=== PATIENT | female | born 1960 | race Caucasian/White ===

== ENCOUNTER 2019-06-11 16:31 | Inpatient (IN) | payer OTHER ==
[~2019-06-11] VITALS: Ht 162.6 cm; Wt 73.9 kg
--- NOTE | 2019-06-11 16:00 | NUR ---
RN ADMITTING NOTES PT ARRIVED ONTO THE UNIT AT 1600 FROM [facility]. PT COMPLAINS OF WORSENING ABD PAIN X1 WEEK. PT HAS LEFT WRIST #20 INTACT AND PATENT. PT TELE MONITORED SINUS RHYTHM RATE IN THE 60-70S. ALL PATIENT BELONGINGS ACCOUNTED FOR AND DOCUMENTED. PER ADMITING HOSPITALIST CINDI CANTRELL, PATIENT WILL REMAIN NPO. SAFETY PRECAUTIONS IN PLACE, BED IN LOWEST LOCKED POSITION, X2 SIDE RAILS UP AND CALL LIGHT WITHIN REACH, WILL CONTINUE TO MONITOR.
[2019-06-11] MEDS ORDERED: HYDR25TA4 PO (16:58)
[2019-06-11] MEDS ORDERED: HYDR-500 PO (16:58)
[2019-06-11] MEDS ORDERED: PANT40TA4 PO (16:58)
[2019-06-11] MEDS ORDERED: SERT100T PO (16:58)
[2019-06-11] MEDS ORDERED: METH500T6 PO (16:58)
--- NOTE | 2019-06-11 18:50 | NUR ---
CANS VACUUM TESTER NOTES NOTES PT RESTING IN BED. AT BEDSIDE. PT CURRENTLY MEETING WITH HOSPITALIST BECKY CANTRELL. AWAITING ADMITTING ORDERS. WILL ENDORSE TO GLUING MACHINE FEEDER NURSE FOR CONTINUITY OF CARE.
[2019-06-11] MEDS ORDERED: IV NS 0.9% 1,000 ML IV PRN (19:23)
[2019-06-11] MEDS ORDERED: METHOCARBAMOL (500MG) 500 MG TABLET PO PRN (19:30)
[2019-06-11] MEDS ORDERED: IV NS 0.9% 1,000 ML BAG IV PRN (19:30)
[2019-06-11] MEDS ORDERED: ONDANSETRON HCL/PF 4 MG/2 ML VIAL IVP PRN (19:30)
[2019-06-11] MEDS ORDERED: MAG HYDROX/AL HYDROX/SIMETH 30 ML UDC PO PRN (19:30)
[2019-06-11] MEDS ORDERED: HYDROCODONE/APAP 5/325MG 1 EACH TABLET PO PRN (19:30)
[2019-06-11] MEDS ORDERED: MORPHINE SULFATE INJ 2 MG/ML DISP.SYRIN IV PRN (19:30)
[2019-06-11] MEDS ORDERED: Z GUARD REMEDY 2 OZ OINT TP PRN (19:30)
[2019-06-11] MEDS ORDERED: CEFTRIAXONE 1 G in IV D5W 50 ML IV SCH (19:30)
[2019-06-11] MEDS ORDERED: MAGNESIUM HYDROXIDE 30 ML UDC PO PRN (19:30)
[2019-06-11] MEDS ORDERED: PANTOPRAZOLE 40 MG VIAL IV SCH (19:30)
[2019-06-11] MEDS ORDERED: ACETAMINOPHEN 325 MG TABLET PO PRN (19:30)
--- NOTE | 2019-06-11 19:52 | NUR ---
LINUX SYSTEMS ADMINISTRATOR OPENING NOTES RECEIVED PATIENT IN BED AWAKE, ALERT AND ORIENTED X4, VERBALLY RESPONSIVE, ABLE TO MAKE NEEDS KNOWN. AT BEDSIDE. BREATHING EVEN AND UNLABORED. NO SOB NOTED. TOLERATING ROOM AIR. CURRENTLY WITH NO COMPLAINTS OF PAIN OR DISCOMFORT. NO FACIAL GRIMACING. IV ON LEFT WRIST INTACT AND PATENT. SKIN DRY AND WARM TO TOUCH. AFEBRILE. REMAINS NPO. ALL OTHER NEEDS ATTENDED TO. SAFETY MEASURES IN PLACE. CALL LIGHT WITHIN REACH. WILL CONTINUE TO MONITOR.
[2019-06-11 20:00] VITALS: BP 108/54
[2019-06-11 20:50] LABS: ALBUMIN 3.5 g/dL (3.4-5.0); BILIRUBIN,TOTAL 1.2 mg/dL (0.2-1.0); CALCIUM, SERUM 8.3 mg/dL (8.5-10.1); CREATININE 0.7 mg/dL (0.6-1.3); TOTAL PROTEIN, SERUM 6.6 g/dL (6.4-8.2)
[2019-06-11] MEDS: CEFTRIAXONE 1 G in IV D5W 50 ML IV SCH (20:50)
[2019-06-11 20:57] LABS: POTASSIUM 2.6 mmol/L (3.5-5.1)
[2019-06-11 21:02] LABS: THYROID STIMULATING HORMONE 0.094 uIU/mL (0.358-3.74)
--- NOTE | 2019-06-11 21:16 | NUR ---
RN MS NOTES PATIENT WHEELED DOWN FOR HIDA SCAN.
[2019-06-11 21:20] LABS: BASOPHILS % (AUTO) 0.2 % (0.0-2.0); HEMATOCRIT 38 % (33-45); HEMOGLOBIN 12.7 g/dL (11.5-14.8); LYMPHOCYTES # (AUTO) 1.9 /CMM (0.8-4.8); LYMPHOCYTES % (AUTO) 21.8 % (20.0-44.0); MEAN CORPUSCULAR HGB CONC 34 g/dl (31.0-36.0); MEAN CORPUSCULAR VOLUME 88 fL (82-100); MONOCYTES # (AUTO) 1.2 /CMM (0.1-1.30); MONOCYTES % (AUTO) 14.2 % (2.0-12.0); NEUTROPHILS # (AUTO) 5.1 /CMM (1.8-8.9); NEUTROPHILS % (AUTO) 59.8 % (43.0-81.0); PLATELET COUNT (AUTO) 321 /CMM (150-450); RED BLOOD CELL COUNT(AUTO) 4.29 MIL/uL (4.0-5.2); WHITE BLOOD COUNT (AUTO) 8.5 K/uL (4.3-11.0)
--- NOTE | 2019-06-11 21:37 | NUR ---
RN MS NOTES RECEIVED RESULT FOR POTASSIUM 2.6. PATIENT'S POTASSIUM AT [facility] WAS SAME AND WAS GIVEN 20MEQ IV OF POTASSIUM. POTASSIUM LEVEL INCREASED TO 3.1 PRIOR TO BEING ADMITTED TO [facility]. DR. TRAY LACEY MADE AWARE, WITH ORDERS TO TRANSFUSE ANOTHER 40MEQ IV OF POTASSIUM. ORDER NOTED AND CARRIED OUT. WILL CONTINUE TO MONITOR.
--- NOTE | 2019-06-11 22:42 | NUR ---
RN MS NOTES PATIENT BACK FROM HIDA SCAN. NO DISTRESS NOTED. IN STABLE CONDITION.
--- NOTE | 2019-06-11 22:52 | NUR ---
NM:HIDA SCAN WAS COMPLETED. TECH:RB.
[2019-06-11] MEDS: POTASSIUM CL. PREMIX PERIPHER. 50 ML IV SCH (22:55)
[2019-06-12] VITALS: BP 120/77
[2019-06-12] MEDS: POTASSIUM CL. PREMIX PERIPHER. 50 ML IV SCH ×3 (00:06→01:52)
[2019-06-12 04:00] VITALS: BP 118/58
--- NOTE | 2019-06-12 07:02 | NUR ---
IC DESIGNER CUSTOM CLOSING NOTES PATIENT RESTING IN BED. NO ACUTE CHANGES THROUGHOUT SHIFT. BREATHING EVEN AND UNLABORED. NO SOB NOTED. ON ROOM AIR. IV ON LEFT WRIST INTACT AND PATENT WITH IVF INFUSING. CURRENTLY WITH NO COMPLAINTS OF PAIN OR DISCOMFORT. MORPHINE RECENTLY GIVEN. ALL OTHER NEEDS ATTENDED TO. SAFETY MEASURES IN PLACE. CALL LIGHT WITHIN REACH. WILL ENDORSE TO ONCOMING NURSE FOR GIA.
[2019-06-12 07:40] LABS: BASOPHILS % (AUTO) 0.3 % (0.0-2.0); EOSINOPHILS % (AUTO) 6.4 % (0.0-6.0); HEMATOCRIT 37 % (33-45); HEMOGLOBIN 12.4 g/dL (11.5-14.8); LYMPHOCYTES # (AUTO) 1.3 /CMM (0.8-4.8); LYMPHOCYTES % (AUTO) 20.8 % (20.0-44.0); MEAN CORPUSCULAR HGB CONC 34 g/dl (31.0-36.0); MEAN CORPUSCULAR VOLUME 88 fL (82-100); MONOCYTES # (AUTO) 0.9 /CMM (0.1-1.30); MONOCYTES % (AUTO) 14.3 % (2.0-12.0); NEUTROPHILS # (AUTO) 3.8 /CMM (1.8-8.9); NEUTROPHILS % (AUTO) 58.2 % (43.0-81.0); PLATELET COUNT (AUTO) 300 /CMM (150-450); RED BLOOD CELL COUNT(AUTO) 4.19 MIL/uL (4.0-5.2); WHITE BLOOD COUNT (AUTO) 6.4 K/uL (4.3-11.0)
[2019-06-12 07:57] LABS: ALBUMIN 3.2 g/dL (3.4-5.0); BILIRUBIN,DIRECT 0.2 mg/dL (0.0-0.2); CALCIUM, SERUM 8.2 mg/dL (8.5-10.1); CREATININE 0.6 mg/dL (0.6-1.3); MAGNESIUM 2.1 mg/dL (1.8-2.4); PHOSPHORUS 1.8 mg/dL (2.5-4.9); POTASSIUM 2.9 mmol/L (3.5-5.1); TOTAL PROTEIN, SERUM 6.2 g/dL (6.4-8.2)
[2019-06-12 08:00] VITALS: BP 131/77
[2019-06-12] MEDS: HYDROCHLOROTHIAZIDE 25 MG TABLET PO SCH (08:30)
[2019-06-12] MEDS: hydrOXYzine PAMOATE 25 MG CAPSULE PO SCH (08:30)
[2019-06-12] MEDS: PANTOPRAZOLE 40 MG TABLET.DR PO SCH (08:30)
[2019-06-12] MEDS: SERTRALINE HCL 50 MG TABLET PO SCH (08:32)
[2019-06-12] MEDS ORDERED: POTASSIUM CL. PREMIX PERIPHER. 50 ML IV SCH (12:00)
--- NOTE | 2019-06-12 12:39 | NUR ---
RN NOTES PT CANNOT TOLERATE IV POTASSIUM. WILL INFORM DR EILEEN DUPREE AND CONTINUE TO FOLLOW UP.
--- NOTE | 2019-06-12 12:52 | NUR ---
RN NOTES PER DR DUPREE, CHANGE ORDER FROM 6 X10 MEQ KCL IV BAGS TO 1L OF NS WITH 60MEQ OF KCL ADDED.
[2019-06-12] MEDS: Potassium Chloride 30 MEQ in IV NS 0.9% 1,000 ML IV SCH (14:06)
[2019-06-12] MEDS ORDERED: POTASSIUM PHOSPHATE MM 7.5 MMOL in IV D5W 100 ML IV SCH (15:00)
--- NOTE | 2019-06-12 15:07 | NUR ---
Social service consult requested by family preservation caseworker Leighton for homelessness. Pt. is a 58 year old female who was admitted to [facility] for abdominal pain. SW met with pt. bedside. Pt. is alert and oriented x 4. Pt. is polite and cordial with SW during the assessment. Per pt. she lives with her Luis Carlos at [facility] located at [facility]. Pt. has been living there for the past 1 1/2 years. Prior to living at [facility] pt. was living in [place] on . Pt's pillowcase folder is Lissa at [facility]. Pt. denies any alcohol use. Pt. was using marijuana but states she is going to stop because she thinks it is contributing to her abdominal pain. Pt. is linked to [facility] through [facility]. Pt. has panic attacks and Depression. Pt. is currently taking Zoloft. Pt. has had one visit with a psychiatrist at [facility] in [facility]. Pt. denies any suicidal and homicidal ideations at this time. Pt's discharge plan is to go back to [facility] located at [address] [place] [address]. Pt. will need a TAP card upon discharge. Homeless Patient Waiver form to be signed by the pt. upon discharge.
--- NOTE | 2019-06-12 15:37 | NUR ---
RN NOTES PER DR EILEEN DUPREE, START PATIENT ON FULL LIQUID DIET, IF PATIENT TOLERATES ADVANCE TO SOFT RIGHT AWAY. WILL MONITOR.
[2019-06-12 16:00] VITALS: BP 156/85
--- NOTE | 2019-06-12 18:24 | NUR ---
RN NOTES CLARIFIED ORDERS WITH DR DUPREE. PER DR DUPREE, CONTINUE WITH SOFT DIET.
--- NOTE | 2019-06-12 19:04 | NUR ---
RN CLOSING NOTES PT AWAKE AND RESTING IN BED. PT TOLERATING ADVANCED DIET WELL. NO COMPLAINTS OF PAIN, SOB OR DISTRESS AT THIS TIME. PT HAS LEFT WRIST #20 IV RUNNING NS @75ML/HR. ALL PATIENT NEEDS MET DURING SHIFT. SAFETY PRECAUTIONS IN PLACE, BED IN LOWEST LOCKED POSITION, X2 SIDE RAILS UP AND CALL LIGHT WITHIN REACH. WILL ENDORSE TO ERP PROGRAMMER NURSE FOR CONTINUITY OF CARE.
--- NOTE | 2019-06-12 19:10 | NUR ---
MS/RN OPENING NOTES PT RECEIVED AWAKE, WATCHING TV. A/OX4. ON ROOM AIR, BREATHING EVEN AND UNLABORED. DENIES SOB AND PAIN AT THIS TIME BUT DOES C/O HEARTBURN. WILL ADMINISTER MAALOX ORDERED. IV TO LEFT WRIST PATENT AND INTACT RUNNING IVF ORDERED. BED IN LOW/LOCKED POSITION WITH CALL LIGHT IN REACH, HOB ELEVATED AND BILAT. UPPER SIDE RAILS IN PLACE. PT MADE AWARE THAT SHE WILL BE MOVING TO MS 2. WILL CONTINUE TO MONITOR
[2019-06-12 20:00] VITALS: BP 125/79
--- NOTE | 2019-06-12 20:26 | NUR ---
MS/RN NOTES PT MOVED FROM ROOM 315-1 TO 208-1 IN STABLE CONDITION
[2019-06-12] MEDS: CEFTRIAXONE 1 G in IV D5W 50 ML IV SCH (22:09)
--- NOTE | 2019-06-12 22:09 | NUR ---
MS/RN NOTES IV LEAKING AND INFILTRATED. NEW IV INSERTED TO LFA #24, IV ABX INITIATED.
[2019-06-13] MEDS: Potassium Chloride 30 MEQ in IV NS 0.9% 1,000 ML IV SCH (04:27)
--- NOTE | 2019-06-13 07:09 | NUR ---
MS/RN CLOSING NOTES PT AWAKE, RESTING COMFORTABLY IN BED. A/OX4. ON ROOM AIR, BREATHING EVEN AND UNLABORED. DENIES SOB AND PAIN AT THIS TIME. IV TO LFA PATENT AND INTACT RUNNING IVF ORDERED. NO SIGNIFICANT CHANGES OVERNIGHT. ALL NEEDS MET AND ANTICIPATED. BED REMAINS IN LOW/LOCKED POSITION WITH CALL LIGHT IN REACH. HOB ELEVATED. BILAT. UPPER SIDE RAILS IN PLACE. WILL ENDORSE TO DAY SHIFT RN GIA
--- NOTE | 2019-06-13 07:58 | NUR ---
MS RN NOTES PATIENT RECEIVED RESTING INSIDE ROOM. AWAKE, ALERT AND ORIENTED X 4, VERBALLY RESPONSIVE AND RESPONDS TO VERBAL AND TACTILE STIMULI. BREATHING EVEN AND UNLABORED. NO ACUTE DISTRESS. NO CHANGES IN LOC NOTED. PATIENT CALM AND RELAXED. IVF RUNNING ORDERED. SAFETY PRECAUTIONS IN PLACE. WILL CONTINUE TO MONITOR. BED LOCKED AND IN LOW POSITION. BILATERAL UPPER SIDE RAILS UP AND LOCKED. CALL LIGHT WITHIN EASY REACH
[2019-06-13 08:00] VITALS: BP 111/69
[2019-06-13] MEDS: PANTOPRAZOLE 40 MG TABLET.DR PO SCH (08:28)
[2019-06-13 08:30] VITALS: BP 111/69
[2019-06-13] MEDS: SERTRALINE HCL 50 MG TABLET PO SCH (08:30)
[2019-06-13] MEDS: HYDROCHLOROTHIAZIDE 25 MG TABLET PO SCH (08:30)
[2019-06-13] MEDS: hydrOXYzine PAMOATE 25 MG CAPSULE PO SCH (08:30)
[2019-06-13 08:32] LABS: CALCIUM, SERUM 8.4 mg/dL (8.5-10.1); CREATININE 0.6 mg/dL (0.6-1.3); POTASSIUM 3.3 mmol/L (3.5-5.1)
--- NOTE | 2019-06-13 17:45 | NUR ---
MS RN NOTES PATIENT CLEARED TO DISCHARGE BY DR EILEEN DUPREE. DISCHARGE INSTRUCTIONS AND EDUCATION PROVIDED TO PATIENT AND VERBALIZED UNDERSTANDING. ALL BELONGINGS COMPLETE, NO REPORT OF MISSING INVENTORY. IV REMOVED WITH TIP INTACT, PRESSURE DRESSING PLACED ON SITE. NO NEW SKIN BREAKDOWN NOTED ON DISCHARGE. PATIENT LEFT UNIT AMBULATORY IN STABLE CONDITION. NO ACUTE DISTRESS. DENIES ANY PAIN OR DISCOMFORT. ACCOMPANIED BY NURSING STAFF TO PARKING LOT. LEFT HOSPITAL PREMISES WITH VIA PRIVATE CAR AT 1740. MD AWARE OF DISCHARGE
== END 2019-06-13 17:40 | disposition home or self-care (01) | DRG 422 ==
LOC: TELE 16:31 → EDBD 16:31 → MED 06-12 08:01 → MEDSG2 06-12 20:23
PROVIDERS: ADMIT Nurse Practitioner Acute Care; ATTEND Nurse Practitioner Acute Care
DX: E86.0 Dehydration (principal); E83.51 Hypocalcemia; E88.09 Other disorders of plasma-protein metabolism, not elsewhere classified; D72.829 Elevated white blood cell count, unspecified; R74.0 Nonspecific elevation of levels of transaminase and lactic acid dehydrogenase [LDH]; E80.6 Other disorders of bilirubin metabolism; E87.6 Hypokalemia; J44.9 Chronic obstructive pulmonary disease, unspecified; K21.9 Gastro-esophageal reflux disease without esophagitis; F41.9 Anxiety disorder, unspecified; F32.9 Major depressive disorder, single episode, unspecified; F12.90 Cannabis use, unspecified, uncomplicated; Z86.19 Personal history of other infectious and parasitic diseases; E66.3 Overweight; Z68.28 Body mass index [BMI] 28.0-28.9, adult; Z87.891 Personal history of nicotine dependence; I10 Essential (primary) hypertension
CPT/HCPCS: 36415; 71045-TC; 78226; 80048-TC; 80053-TC; 80061-TC; 80076-TC; 82247-TC; 82248-TC; 83605-TC; 83690-TC; 83735-TC; 84100-TC; 84443-TC; 85025-TC; 87040-TC; 87081-TC; A9537; C9113; G0378; J0696; J2270; J2405; J3480; J3490; J7030; J7060; Q0177